=== PATIENT | female | born 1995 | race American Indian/Alaskan Native ===

== ENCOUNTER 2021-01-05 09:26 | Outpatient (CLI) | payer OTHER ==
[2021-01-05] MEDS ORDERED: NITROGLYCERIN 0.4 MG TAB SUBL SL PRN (10:11)
[2021-01-05] MEDS ORDERED: ATROPINE 0.1% (1 MG/10 ML) CARDIAC SYRINGE ONE (10:24)
[2021-01-05 10:37] LABS: BUN/Creatinine Ratio 11; Blood Urea Nitrogen 9 mg/dL (7-17); Calcium 9.2 mg/dL (8.4-10.2); Hemolysis Index 3
[2021-01-05] MEDS ORDERED: METOPROLOL TARTRATE 5 MG/5 ML INJ IV ONE (10:54)
[2021-01-05] MEDS ORDERED: METOPROLOL TARTRATE 50 MG TAB PO SCH (11:00)
[2021-01-05] MEDS ORDERED: SODIUM CHLORIDE 0.9% 250ML 250 ML ONE ×2 (11:51→12:21)
[2021-01-05] MEDS ORDERED: SODIUM CHLORIDE 0.9% 250ML 250 ML IV ONE (12:21)
[2021-01-05 13:36] VITALS: BP 100/59
[2021-01-05] MEDS ORDERED: SODIUM CHLORIDE 0.9% 1000 ML 0 ML ONE (13:47)
[2021-01-05] MEDS ORDERED: METOPROLOL TARTRATE 50 MG TAB PO ONE (14:00)
== END 2021-01-05 09:27 | disposition home or self-care (01) ==
LOC: CT 09:26 → CATHLABREC 09:26
PROVIDERS: ATTEND Internal Medicine Cardiovascular Disease
DX: R07.89 Other chest pain (principal)
CPT/HCPCS: 36415; 80048; 84703; J7050; J0461; J7030